=== PATIENT | female | born 1985 | race Two or more races ===

== ENCOUNTER 2019-01-05 13:30 | Inpatient (IN) | payer OTHER ==
[2019-01-05 16:30] VITALS: BMI 23.8
--- NOTE | 2019-01-05 17:20 | HP ---
CIWA Score - Admission Criteria [facility] Guidelines: Admission for Medically Managed Detox: Requires at least one of the followin. CIWA greater than 12 2. Seizures within the past 24 hours 3. Delirium tremens within the past 24 hours 4. Hallucinations within the past 24 hours 5. Acute intervention needed for co occurring medical disorder 6. Acute intervention needed for co occurring psychiatric disorder 7. Severe withdrawal that cannot be handled at a lower level of care (continued vomiting, continued diarrhea, abnormal vital signs) requiring intravenous medication and/or fluids 8. Admission ROS S - HPI Chief Complaint: marijuana and PCP rehabilitation Allergies/Adverse Reactions: Allergies Allergy/AdvReac Type Severity Reaction Status Date / Time No Known Allergies Allergy Verified 01/05/19 15:42 History of Present Illness: Patient is a 33 yo female with hx of marijuana and PCP dependence with last use yesterday, is here seeking inpatient rehabilitation, as per patient she currently is court mandated d/t open ACS case at risk of loosing custody of her children. PMHX: Anemia, abdominal hernia Psych: anxiety. Denies SI/HI or hx of suicide attempt. Exam Limitations: No Limitations - Ebola screening Have you traveled outside of the country in the last 21 days: No Have you had contact with anyone from an Ebola affected area: No Do you have a fever: No - Review of Systems Constitutional: Chills EENT: reports: No Symptoms Reported Respiratory: reports: No Symptoms reported Cardiac: reports: No Symptoms Reported GI: reports: Poor Fluid Intake : reports: No Symptoms Reported Musculoskeletal: reports: No Symptoms Reported Integumentary: reports: No Symptoms Reported Neuro: reports: No Symptoms reported Endocrine: reports: No Symptoms Reported Hematology: reports: No Symptoms Reported Psychiatric: reports: Mood/Affect Appropiate, Orientated x3, Anxious Other Systems: Reviewed and Negative Patient History - Patient Medical History Hx Anemia: Yes Hx Asthma: No Hx Chronic Obstructive Pulmonary Disease (COPD): No Hx Cancer: No Hx Cardiac Disorders: No Hx Congestive Heart Failure: No Hx Hypertension: No Hx Hypercholesterolemia: No Hx Pacemaker: No HX Cerebrovascular Accident: No Hx Seizures: No Hx Dementia: No Hx Diabetes: No Hx Gastrointestinal Disorders: No Hx Liver Disease: No Hx Genitourinary Disorders: No Hx Sexually Transmitted Disorders: No Hx Renal Disease (ESRD): No Hx Thyroid Disease: No Hx Human Immunodeficiency Virus (HIV): No Hx Hepatitis C: No Hx Depression: No Hx Suicide Attempt: No Hx Bipolar Disorder: No Hx Schizophrenia: No - Patient Surgical History Past Surgical History: Yes Hx Section: Yes (x 2 ) Other Surgical History: D &C x 1 - PPD History Previous Implant?: No Documented Results: Negative w/o proof PPD to be Administered?: Yes - Reproductive History Patient is a Female of Child Bearing Age (11 -55 yrs old): Yes Last Menstrual Period: 12/28/18 - Smoking Cessation Smoking history: Smoker current status UNK Have you smoked in the past 12 months: No Hx Chewing Tobacco Use: No Initiated information on smoking cessation: No - Substance & Tx. History Hx Alcohol Use: No Hx Substance Use: Yes (PCP) Substance Use Type: Marijuana Hx Substance Use Treatment: No - Substances abused Marijuana/Hashish Substance route: Smoking Frequency: Daily Amount used: $200 Age of first use: 21 Date of last use: 04/26/18 PCP Substance route: Smoking Frequency: Daily Amount used: 1-2 Blunt ( $20) Age of first use: 21 Date of last use: 01/04/19 Family Disease History - Family Disease History Family History: Denies Admission Physical Exam [facility] - Vital Signs Vital Signs: Vital Signs - 24 hr 01/05/19 15:45 Temperature 98.3 F Pulse Rate 81 Respiratory 16 Rate Blood Pressure 100/65 - Physical General Appearance: Yes: Appropriately Dressed HEENTM: Yes: EOMI, Hearing grossly Normal, Normal ENT Inspection, Normocephalic , Normal Voice, MIKE, Pharynx Normal, Tm's normal Respiratory: Yes: Chest Non-Tender, Lungs Clear, Normal Breath Sounds, No Respiratory Distress, No Accessory Muscle Use Neck: Yes: No masses,lesions,Nodules, Trachea in good position Breast: Yes: Breast Exam Deferred Cardiology: Yes: Regular Rhythm, Regular Rate Abdominal: Yes: Normal Bowel Sounds, Non Tender, Flat, Soft Genitourinary: Yes: Within Normal Limits Back: Yes: Normal Inspection Musculoskeletal: Yes: full range of Motion, Gait Steady, Pelvis Stable Extremities: Yes: Normal Capillary Refill, Normal Inspection, Normal Range of Motion, Non-Tender Neurological: Yes: accounting clerks supervisor II-XII NML intact, Fully Oriented, Alert, Motor Strength 5/5, Normal Mood/Affect, Normal Response, Depressed Affect Integumentary: Yes: Normal Color, Dry, Warm Lymphatic: Yes: Within Normal Limits - Diagnostic (1) PCP dependence Current Visit: Yes Status: Acute (2) Anxiety Current Visit: Yes Status: Acute (3) Anemia Current Visit: Yes Status: Chronic Qualifiers: Anemia type: unspecified type Qualified Code(s): D64.9 - Anemia, unspecified Breathalyzer - Breathalyzer Breathalyzer: 0 Urine Drug Screen - Test Device Lot number: [id number] Expiration date: 10/04/20 - Control Is test valid?: Yes - Results Drug screen NEGATIVE: Yes Inpatient Rehab Admission - Rehab Decision to Admit Inpatient rehab admission?: Yes - Initial Determination Are CD services needed?: Yes Free of communicable disease: Yes Not in need of hospitalization: Yes - Rehab Admission Criteria Previous failed treatment: Yes Poor recovery environment: Yes Comorbidities: Yes Lacks judgement: Yes Patient is meeting Inpatient Rehab admission criteria:: Yes
[2019-01-05] MEDS ORDERED: MENTHOL/PHENOL 1 EACH UD MM PRN (17:22)
[2019-01-05] MEDS ORDERED: P-EPHED 60MG/TRIPROLIDI 2.5MG TABLET PO PRN (17:22)
[2019-01-05] MEDS ORDERED: MAGNESIUM CITRATE 300 ML BOTTLE PO PRN (17:22)
[2019-01-05] MEDS ORDERED: guaiFENesin 200 MG/10 ML 10 ML UNIT-DOSE CUPS PO PRN (17:22)
[2019-01-05] MEDS ORDERED: MAGNESIUM HYDROX 2400MG/30ML ORAL SUSPENSION 30 ML CUP PO PRN (17:22)
[2019-01-05] MEDS ORDERED: MAG HYDROX/AL HYDROX/SIMETH 30 ML UNIT-DOSE CUP PO PRN (17:22)
[2019-01-05] MEDS ORDERED: hydrOXYzine PAMOATE 25 MG CAPSULE (FP) PO PRN (17:22)
[2019-01-05] MEDS ORDERED: LOPERAMIDE HCL 2 MG CAPSULE PO PRN (17:22)
--- NOTE | 2019-01-05 17:47 | PN ---
S Progress Note Note: currently utox specimen cup does not test for PCP, u/a ordered w/ PCP test, results pending
[2019-01-05] MEDS ORDERED: traZODone HCL 50 MG TABLET (FP) PO ONE (22:00)
[2019-01-05] MEDS: THIAMINE HCL 100 MG TABLET (FP) PO SCH (22:16)
[2019-01-06] MEDS: PRENATAL VITAMINS W/ FOLIC ACID TABLET (FP) PO SCH (10:52)
[2019-01-06 11:50] LABS: HEMATOCRIT 34.7 % (32.4-45.2); HEMOGLOBIN 11.3 GM/dL (10.7-15.3); MCHC 32.6 g/dl (32.0-36.0); MEAN CELL VOLUME 88.9 fl (80-96); MEAN PLT VOLUME 8.7 fl (7.5-11.1); RBC 3.91 M/mm3 (3.60-5.2); RDW 13.6 % (11.6-15.6)
[2019-01-06 12:00] LABS: ALBUMIN 3.5 g/dl (3.4-5.0); BILIRUBIN,TOTAL 0.3 mg/dL (0.2-1); BLOOD UREA NITROGEN 11.6 mg/dL (7-18); CALCIUM 8.5 mg/dL (8.5-10.1); CREATININE 0.8 mg/dL (0.55-1.3); POTASSIUM 4.4 mmol/L (3.5-5.1); TOT PROT 6.4 g/dl (6.4-8.2)
[2019-01-06 12:15] LABS: PLATELET COUNT 314 K/MM3 (134-434)
--- NOTE | 2019-01-06 13:57 | EKG ---
Test Reason : Blood Pressure : / mmHG Vent. Rate : 067 BPM Atrial Rate : 067 BPM P-R Int : 140 ms QRS Dur : 078 ms QT Int : 420 ms P-R-T Axes : 071 058 051 degrees QTc Int : 443 ms NORMAL SINUS RHYTHM NORMAL ECG NO PREVIOUS ECGS AVAILABLE Confirmed by LASHAUN FLYNN MD ([id number]) on 01/06/2019 1:57:16 PM Referred By: JEFF GARZA Confirmed By:LASHAUN FLYNN MD
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
[2019-01-06] MEDS: THIAMINE HCL 100 MG TABLET (FP) PO SCH (21:01)
[2019-01-06 23:07] LABS: URINE APPEARANCE CLEAR; URINE BILIRUBIN NEGATIVE (NEGATIVE); URINE COLOR YELLOW; URINE GLUCOSE (UA) NEGATIVE (NEGATIVE); URINE KETONE NEGATIVE (NEGATIVE); URINE LEUK ESTERASE NEGATIVE (NEGATIVE); URINE NITRITE NEGATIVE (NEGATIVE); URINE PROTEIN NEGATIVE (NEGATIVE); URINE UROBILINOGEN 0.2 mg/dL (0.2-1.0)
[2019-01-07] MEDS: PRENATAL VITAMINS W/ FOLIC ACID TABLET (FP) PO SCH (10:10)
--- NOTE | 2019-01-07 15:46 | PN ---
[facility] Progress Note Note: patient complaint of pain on left side,no sob, Vital Signs Temperature 97.7 F 01/07/19 15:43 Pulse Rate 76 01/07/19 15:43 Respiratory Rate 20 01/07/19 15:43 Blood Pressure 100/64 01/07/19 15:43 O2 Sat by Pulse Oximetry (%) ekg nsr,normal treatment motrin 400mgs po close monitoring
[2019-01-07] MEDS: IBUPROFEN 400 MG TABLET (FP) PO PRN (16:09)
[2019-01-07] MEDS: THIAMINE HCL 100 MG TABLET (FP) PO SCH (22:00)
--- NOTE | 2019-01-08 09:17 | EKG ---
Test Reason : Blood Pressure : / mmHG Vent. Rate : 069 BPM Atrial Rate : 069 BPM P-R Int : 146 ms QRS Dur : 080 ms QT Int : 394 ms P-R-T Axes : 062 050 047 degrees QTc Int : 422 ms NORMAL SINUS RHYTHM POSSIBLE LEFT ATRIAL ENLARGEMENT BORDERLINE ECG WHEN COMPARED WITH ECG OF 05-JAN-2019 17:58, NO SIGNIFICANT CHANGE WAS FOUND Confirmed by ADONIS CANAS MD ([id number]) on 01/08/2019 9:17:19 AM Referred By: Confirmed By:ADONIS CANAS MD
[2019-01-08] MEDS: PRENATAL VITAMINS W/ FOLIC ACID TABLET (FP) PO SCH (10:40)
[2019-01-08] MEDS: IBUPROFEN 400 MG TABLET (FP) PO PRN (12:18)
[2019-01-08] MEDS: METHOCARBAMOL 500 MG TABLET PO PRN ×2 (15:15→21:53)
[2019-01-08] MEDS: THIAMINE HCL 100 MG TABLET (FP) PO SCH (21:52)
[2019-01-08] MEDS ORDERED: ASPIRIN 81 MG CHEWABLE TABLETS PO ONE (22:51)
--- NOTE | 2019-01-08 22:54 | PN ---
[facility] Progress Note Note: PATIENT COMPLAINED OF CHEST PAIN Vital Signs Temperature 97.9 F 01/08/19 07:20 Pulse Rate 78 01/08/19 12:15 Respiratory Rate 18 01/08/19 12:15 Blood Pressure 99/64 01/08/19 12:15 O2 Sat by Pulse Oximetry (%) Laboratory Last Values WBC 6.0 K/mm3 (4.0-10.0) 01/06/19 08:35 RBC 3.91 M/mm3 (3.60-5.2) 01/06/19 08:35 Hgb 11.3 GM/dL (10.7-15.3) 01/06/19 08:35 Hct 34.7 % (32.4-45.2) 01/06/19 08:35 MCV 88.9 fl (80-96) 01/06/19 08:35 MCH 29.0 pg (25.7-33.7) 01/06/19 08:35 MCHC 32.6 g/dl (32.0-36.0) 01/06/19 08:35 RDW 13.6 % (11.6-15.6) 01/06/19 08:35 Plt Count 314 K/MM3 (134-434) 01/06/19 08:35 MPV 8.7 fl (7.5-11.1) 01/06/19 08:35 Sodium 142 mmol/L (136-145) 01/06/19 08:35 Potassium 4.4 mmol/L (3.5-5.1) 01/06/19 08:35 Chloride 109 mmol/L (98-107) H 01/06/19 08:35 Carbon Dioxide 27 mmol/L (21-32) 01/06/19 08:35 Anion Gap 6 MMOL/L (8-16) L 01/06/19 08:35 BUN 11.6 mg/dL (7-18) 01/06/19 08:35 Creatinine 0.8 mg/dL (0.55-1.3) 01/06/19 08:35 Est GFR (CKD-EPI)AfAm 112.27 01/06/19 08:35 Est GFR (CKD-EPI)NonAf 96.87 01/06/19 08:35 Random Glucose 117 mg/dL (74-106) H 01/06/19 08:35 Calcium 8.5 mg/dL (8.5-10.1) 01/06/19 08:35 Total Bilirubin 0.3 mg/dL (0.2-1) 01/06/19 08:35 AST 10 U/L (15-37) L 01/06/19 08:35 ALT 23 U/L (13-61) 01/06/19 08:35 Alkaline Phosphatase 47 U/L (45-117) 01/06/19 08:35 Total Protein 6.4 g/dl (6.4-8.2) 01/06/19 08:35 Albumin 3.5 g/dl (3.4-5.0) 01/06/19 08:35 Urine Color Yellow 01/06/19 20:00 Urine Appearance Clear 01/06/19 20:00 Urine pH 7.0 (5.0-8.0) 01/06/19 20:00 Ur Specific [place] 1.024 (1.010-1.035) 01/06/19 20:00 Urine Protein Negative (NEGATIVE) 01/06/19 20:00 Urine Glucose (UA) Negative (NEGATIVE) 01/06/19 20:00 Urine Ketones Negative (NEGATIVE) 01/06/19 20:00 Urine Blood Negative (NEGATIVE) 01/06/19 20:00 Urine Nitrite Negative (NEGATIVE) 01/06/19 20:00 Urine Bilirubin Negative (NEGATIVE) 01/06/19 20:00 Urine Urobilinogen 0.2 mg/dL (0.2-1.0) 01/06/19 20:00 Ur Leukocyte Esterase Negative (NEGATIVE) 01/06/19 20:00 POC Urine HCG, Qual Negative 01/06/19 20:00 RPR Titer Nonreactive (NONREACTIVE) 01/06/19 08:35 ACTION: EKG STAT ASPIRIN 81MG TABLET 1 TABLET ORAL
[2019-01-09] MEDS: PRENATAL VITAMINS W/ FOLIC ACID TABLET (FP) PO SCH (09:33)
[2019-01-09] MEDS: METHOCARBAMOL 500 MG TABLET PO PRN (09:34)
--- NOTE | 2019-01-09 11:54 | EKG ---
Test Reason : Blood Pressure : / mmHG Vent. Rate : 073 BPM Atrial Rate : 073 BPM P-R Int : 148 ms QRS Dur : 082 ms QT Int : 396 ms P-R-T Axes : 073 055 054 degrees QTc Int : 436 ms NORMAL SINUS RHYTHM POSSIBLE LEFT ATRIAL ENLARGEMENT BORDERLINE ECG WHEN COMPARED WITH ECG OF 07-JAN-2019 14:54, NO SIGNIFICANT CHANGE WAS FOUND Confirmed by SHAQ ARAUJO MD ([id number]) on 01/09/2019 11:54:43 AM Referred By: Confirmed By:SHAQ ARAUJO MD
[2019-01-09] MEDS: THIAMINE HCL 100 MG TABLET (FP) PO SCH (21:49)
[2019-01-09] MEDS: IBUPROFEN 400 MG TABLET (FP) PO PRN (21:50)
[2019-01-10] MEDS ORDERED: COLLOIDAL OATMEAL 1 BAR EACH TP PRN (08:05)
[2019-01-10] MEDS: PRENATAL VITAMINS W/ FOLIC ACID TABLET (FP) PO SCH (09:28)
[2019-01-10] MEDS: METHOCARBAMOL 500 MG TABLET PO PRN ×2 (14:01→21:52)
[2019-01-10] MEDS: THIAMINE HCL 100 MG TABLET (FP) PO SCH (21:50)
[2019-01-10] MEDS: MELATONIN 5 MG TABLETS PO PRN (21:51)
[2019-01-11] MEDS: PRENATAL VITAMINS W/ FOLIC ACID TABLET (FP) PO SCH (09:56)
[2019-01-11] MEDS: METHOCARBAMOL 500 MG TABLET PO PRN ×2 (09:56→21:49)
--- NOTE | 2019-01-11 11:41 | PN ---
[facility] Progress Note (SOAP) Subjective: Patient c/o chest pain and low BP. Describes the chest pain as pins and needles that starts in her left hand and travels up to her chest. States she also has pins and needles in her left hand. Chest pain does not increase with pain, states that she does not feel short of breath, and the pain does not radiate anywhere else. She has complained of this pain twice in the past, treated once with ASA 81 and once with motrin. EKGs done twice show NSR. She is also concerned that her BP ranges from 93/63- 103/64. Objective: General: no apparent distress HEENT: PERRLA Lungs: clear Heart: s1 s2 audible, regular Neurological: No neurological deficits noted, hands sensitive to sharp/dull touch Extremities: brisk capillary refill bilaterally hands Skin: color consistent throughout trunk and extremities, mucous membrane moist, pink. CBC, BMP 01/06/19 08:35 01/06/19 08:35 Vital Signs (72 hours) 01/08/19 01/09/19 01/09/19 12:15 00:30 03:30 Temperature Pulse Rate 78 Respiratory 18 17 16 Rate Blood Pressure 99/64 01/09/19 01/10/19 01/10/19 07:18 03:30 06:41 Temperature 97.8 F 97.1 F L Pulse Rate 72 73 Respiratory 18 16 16 Rate Blood Pressure 103/66 102/65 01/10/19 01/11/19 01/11/19 14:02 00:30 03:30 Temperature Pulse Rate 81 Respiratory 18 16 16 Rate Blood Pressure 102/68 01/11/19 01/11/19 07:04 09:59 Temperature 97.9 F Pulse Rate 92 H 88 Respiratory 18 Rate Blood Pressure 93/63 103/64 01/11/19 11:38 Assessment: Numbness and tingling, bilateral hands Normal BP Elevated random blood glucose 01/11/19 11:41 01/11/19 11:42 Plan: Educated patient about BP parameters-- her BP is in the normal range. Explained possibility of nerve pain ( as opposed to cardiac pain) Started gabapentin, 100 mg TID. Vitamin B may also help with nerve pain. BGM x 3 to rule out hyperglycemia
[2019-01-11] MEDS: GABAPENTIN 100 MG CAPSULE (FP) PO SCH ×2 (13:57→21:49)
[2019-01-11] MEDS: THIAMINE HCL 100 MG TABLET (FP) PO SCH (21:49)
[2019-01-12] MEDS: GABAPENTIN 100 MG CAPSULE (FP) PO SCH ×3 (06:24→21:26)
[2019-01-12] MEDS: PRENATAL VITAMINS W/ FOLIC ACID TABLET (FP) PO SCH (09:48)
[2019-01-12] MEDS: THIAMINE HCL 100 MG TABLET (FP) PO SCH (21:26)
[2019-01-13] MEDS: GABAPENTIN 100 MG CAPSULE (FP) PO SCH ×3 (06:55→21:26)
[2019-01-13] MEDS: PRENATAL VITAMINS W/ FOLIC ACID TABLET (FP) PO SCH (09:51)
[2019-01-13] MEDS: METHOCARBAMOL 500 MG TABLET PO PRN ×2 (14:10→21:26)
[2019-01-13] MEDS: THIAMINE HCL 100 MG TABLET (FP) PO SCH (21:25)
[2019-01-13] MEDS: MELATONIN 5 MG TABLETS PO PRN (21:26)
[2019-01-13] MEDS: ACETAMINOPHEN 325 MG TABLET (FP) PO PRN (21:28)
[2019-01-14] MEDS: GABAPENTIN 100 MG CAPSULE (FP) PO SCH ×3 (06:27→21:02)
[2019-01-14] MEDS: PRENATAL VITAMINS W/ FOLIC ACID TABLET (FP) PO SCH (09:49)
[2019-01-14] MEDS: METHOCARBAMOL 500 MG TABLET PO PRN ×2 (09:50→21:02)
[2019-01-14] MEDS: ACETAMINOPHEN 325 MG TABLET (FP) PO PRN (21:02)
[2019-01-14] MEDS: MELATONIN 5 MG TABLETS PO PRN (21:02)
[2019-01-14] MEDS: THIAMINE HCL 100 MG TABLET (FP) PO SCH (21:02)
[2019-01-15] MEDS: GABAPENTIN 100 MG CAPSULE (FP) PO SCH ×3 (06:52→21:27)
[2019-01-15] MEDS: PRENATAL VITAMINS W/ FOLIC ACID TABLET (FP) PO SCH (09:27)
[2019-01-15] MEDS: ACETAMINOPHEN 325 MG TABLET (FP) PO PRN (18:42)
[2019-01-15] MEDS: MELATONIN 5 MG TABLETS PO PRN (21:27)
[2019-01-15] MEDS: THIAMINE HCL 100 MG TABLET (FP) PO SCH (21:27)
[2019-01-15] MEDS: METHOCARBAMOL 500 MG TABLET PO PRN (21:27)
[2019-01-16] MEDS: GABAPENTIN 100 MG CAPSULE (FP) PO SCH ×3 (06:35→21:48)
[2019-01-16] MEDS: PRENATAL VITAMINS W/ FOLIC ACID TABLET (FP) PO SCH (09:41)
--- NOTE | 2019-01-16 10:14 | PN ---
[facility] Progress Note Note: Pt requesting pain patch due to back pain. Pt reports hx of pinched nerve to right shoulder that radiates to fingers due to pushing stroller for months. Pt c /o facial "acne" and requesting medication to clear rash. Vital Signs - 24 hr 01/16/19 01/16/19 01/16/19 00:30 03:30 06:40 Temperature 97.8 F Pulse Rate 90 Respiratory 16 18 18 Rate Blood Pressure 98/61 Laboratory Tests 01/06/19 01/06/19 01/06/19 08:35 08:35 08:35 WBC 6.0 RBC 3.91 Hgb 11.3 Hct 34.7 MCV 88.9 MCH 29.0 MCHC 32.6 RDW 13.6 Plt Count 314 MPV 8.7 Sodium 142 Potassium 4.4 Chloride 109 H Carbon Dioxide 27 Anion Gap 6 L BUN 11.6 Creatinine 0.8 Est GFR (CKD-EPI)AfAm 112.27 Est GFR (CKD-EPI)NonAf 96.87 POC Glucometer Random Glucose 117 H Calcium 8.5 Total Bilirubin 0.3 AST 10 L ALT 23 Alkaline Phosphatase 47 Total Protein 6.4 Albumin 3.5 Urine Color Urine Appearance Urine pH Ur Specific [place] Urine Protein Urine Glucose (UA) Urine Ketones Urine Blood Urine Nitrite Urine Bilirubin Urine Urobilinogen Ur Leukocyte Esterase POC Urine HCG, Qual RPR Titer Nonreactive TB (QFT) Incubation TB Test (QFT) Nil TB Test (QFT) Mitogen TB Test (QFT) Antigen TB Test (QFT) TB Positive Criteria 01/06/19 01/06/19 01/06/19 08:35 20:00 20:00 WBC RBC Hgb Hct MCV MCH MCHC RDW Plt Count MPV Sodium Potassium Chloride Carbon Dioxide Anion Gap BUN Creatinine Est GFR (CKD-EPI)AfAm Est GFR (CKD-EPI)NonAf POC Glucometer Random Glucose Calcium Total Bilirubin AST ALT Alkaline Phosphatase Total Protein Albumin Urine Color Yellow Urine Appearance Clear Urine pH 7.0 Ur Specific [place] 1.024 Urine Protein Negative Urine Glucose (UA) Negative Urine Ketones Negative Urine Blood Negative Urine Nitrite Negative Urine Bilirubin Negative Urine Urobilinogen 0.2 Ur Leukocyte Esterase Negative POC Urine HCG, Qual Negative RPR Titer TB (QFT) Incubation TB Test (QFT) Nil 0.02 TB Test (QFT) Mitogen >10.00 TB Test (QFT) Antigen 0.04 TB Test (QFT) Negative TB Positive Criteria 01/12/19 01/13/19 06:24 07:49 WBC RBC Hgb Hct MCV MCH MCHC RDW Plt Count MPV Sodium Potassium Chloride Carbon Dioxide Anion Gap BUN Creatinine Est GFR (CKD-EPI)AfAm Est GFR (CKD-EPI)NonAf POC Glucometer 93 98 Random Glucose Calcium Total Bilirubin AST ALT Alkaline Phosphatase Total Protein Albumin Urine Color Urine Appearance Urine pH Ur Specific [place] Urine Protein Urine Glucose (UA) Urine Ketones Urine Blood Urine Nitrite Urine Bilirubin Urine Urobilinogen Ur Leukocyte Esterase POC Urine HCG, Qual RPR Titer TB (QFT) Incubation TB Test (QFT) Nil TB Test (QFT) Mitogen TB Test (QFT) Antigen TB Test (QFT) TB Positive Criteria skin:Areas of red papular rash to chin and cheek area. no pus noted. A/P: Back pain Right shoulder pain Facial Acne Lidocaine patch 5% apply daily as directed. Analgesic balm apply to affected area as directed. Benzoyl peroxide solution as directed.
[2019-01-16] MEDS: LIDOCAINE 5% TOPICAL PATCH TP SCH (10:57)
[2019-01-16] MEDS ORDERED: IBUPROFEN 400 MG TABLET (FP) PO PRN (14:37)
[2019-01-16] MEDS: THIAMINE HCL 100 MG TABLET (FP) PO SCH (21:48)
[2019-01-16] MEDS: METHOCARBAMOL 500 MG TABLET PO PRN (21:48)
[2019-01-16] MEDS: LIDOCAINE PATCH REMOVAL MC SCH (21:49)
[2019-01-16] MEDS: METHYL SALICYLATE/MENTHOL OINT 30 GM TUBE TP SCH (21:49)
[2019-01-17] MEDS: GABAPENTIN 100 MG CAPSULE (FP) PO SCH ×3 (06:47→21:47)
[2019-01-17] MEDS ORDERED: PT OWN MED DRAWER 7, Y5N ONE (08:30)
[2019-01-17] MEDS: PRENATAL VITAMINS W/ FOLIC ACID TABLET (FP) PO SCH (09:37)
[2019-01-17] MEDS: BENZOYL PEROXIDE 5% 60 GM GEL..GRAM. TP SCH (09:37)
[2019-01-17] MEDS: LIDOCAINE 5% TOPICAL PATCH TP SCH (09:37)
[2019-01-17] MEDS: LIDOCAINE PATCH REMOVAL MC SCH (21:47)
[2019-01-17] MEDS: METHOCARBAMOL 500 MG TABLET PO PRN (21:47)
[2019-01-17] MEDS: THIAMINE HCL 100 MG TABLET (FP) PO SCH (21:47)
[2019-01-17] MEDS: METHYL SALICYLATE/MENTHOL OINT 30 GM TUBE TP SCH (21:48)
[2019-01-18] MEDS: GABAPENTIN 100 MG CAPSULE (FP) PO SCH ×3 (06:53→21:42)
[2019-01-18] MEDS: PRENATAL VITAMINS W/ FOLIC ACID TABLET (FP) PO SCH (09:48)
[2019-01-18] MEDS: LIDOCAINE 5% TOPICAL PATCH TP SCH (09:48)
[2019-01-18] MEDS: BENZOYL PEROXIDE 5% 60 GM GEL..GRAM. TP SCH (09:48)
[2019-01-18] MEDS ORDERED: PT OWN MED DRAWER 7, Y5N ONE (10:22)
--- NOTE | 2019-01-18 15:37 | PN ---
[facility] Progress Note Note: Pt to be discharged tomorrow. CAme here for marijuana use disorder-rehab, says all went well. PCp-Dr. Arzate, [facility], pt was seen last month PE: alert and oriented lungs clear Cardiology: Yes: Regular Rhythm, Regular Rate Abdominal: Yes: Normal Bowel Sounds, Non Tender, Flat, Soft a/p: MJ use disorder- complted rehab андрей ordered and sent to pharmacy
[2019-01-18] MEDS: LIDOCAINE PATCH REMOVAL MC SCH (21:42)
[2019-01-18] MEDS: THIAMINE HCL 100 MG TABLET (FP) PO SCH (21:42)
[2019-01-18] MEDS: METHOCARBAMOL 500 MG TABLET PO PRN (21:42)
[2019-01-18] MEDS: METHYL SALICYLATE/MENTHOL OINT 30 GM TUBE TP SCH (21:43)
[2019-01-19] MEDS: GABAPENTIN 100 MG CAPSULE (FP) PO SCH (06:29)
[2019-01-19 07:18] VITALS: BP 103/69; PULSE 91; TEMP 97.7
[2019-01-19] MEDS: ACETAMINOPHEN 325 MG TABLET (FP) PO PRN (07:23)
[2019-01-19] MEDS ORDERED: PT OWN MED DRAWER 7, Y5N ONE (08:43)
--- NOTE | 2019-01-19 08:53 | PN ---
[facility] Progress Note (SOAP) Subjective: Pt admitted to rehab for lori and completed treatment, discharging today. Pt was referred to [facility] on [address] [place], [place] for CD aftercare. Pt indicated she has primary care with Dr. Arzate at a [facility] for medical management. Pt denies s/h/i. Objective: 01/19/19 08:52 Vital Signs - 24 hr 01/19/19 01/19/19 01/19/19 00:30 03:30 07:17 Temperature 97.7 F Pulse Rate 91 H Respiratory 18 18 18 Rate Blood Pressure 103/69 Laboratory Tests 01/06/19 01/06/19 01/06/19 08:35 08:35 08:35 WBC 6.0 RBC 3.91 Hgb 11.3 Hct 34.7 MCV 88.9 MCH 29.0 MCHC 32.6 RDW 13.6 Plt Count 314 MPV 8.7 Sodium 142 Potassium 4.4 Chloride 109 H Carbon Dioxide 27 Anion Gap 6 L BUN 11.6 Creatinine 0.8 Est GFR (CKD-EPI)AfAm 112.27 Est GFR (CKD-EPI)NonAf 96.87 POC Glucometer Random Glucose 117 H Calcium 8.5 Total Bilirubin 0.3 AST 10 L ALT 23 Alkaline Phosphatase 47 Total Protein 6.4 Albumin 3.5 Urine Color Urine Appearance Urine pH Ur Specific [place] Urine Protein Urine Glucose (UA) Urine Ketones Urine Blood Urine Nitrite Urine Bilirubin Urine Urobilinogen Ur Leukocyte Esterase POC Urine HCG, Qual RPR Titer Nonreactive TB (QFT) Incubation TB Test (QFT) Nil TB Test (QFT) Mitogen TB Test (QFT) Antigen TB Test (QFT) TB Positive Criteria 01/06/19 01/06/19 01/06/19 08:35 20:00 20:00 WBC RBC Hgb Hct MCV MCH MCHC RDW Plt Count MPV Sodium Potassium Chloride Carbon Dioxide Anion Gap BUN Creatinine Est GFR (CKD-EPI)AfAm Est GFR (CKD-EPI)NonAf POC Glucometer Random Glucose Calcium Total Bilirubin AST ALT Alkaline Phosphatase Total Protein Albumin Urine Color Yellow Urine Appearance Clear Urine pH 7.0 Ur Specific [place] 1.024 Urine Protein Negative Urine Glucose (UA) Negative Urine Ketones Negative Urine Blood Negative Urine Nitrite Negative Urine Bilirubin Negative Urine Urobilinogen 0.2 Ur Leukocyte Esterase Negative POC Urine HCG, Qual Negative RPR Titer TB (QFT) Incubation TB Test (QFT) Nil 0.02 TB Test (QFT) Mitogen >10.00 TB Test (QFT) Antigen 0.04 TB Test (QFT) Negative TB Positive Criteria 01/12/19 01/13/19 06:24 07:49 WBC RBC Hgb Hct MCV MCH MCHC RDW Plt Count MPV Sodium Potassium Chloride Carbon Dioxide Anion Gap BUN Creatinine Est GFR (CKD-EPI)AfAm Est GFR (CKD-EPI)NonAf POC Glucometer 93 98 Random Glucose Calcium Total Bilirubin AST ALT Alkaline Phosphatase Total Protein Albumin Urine Color Urine Appearance Urine pH Ur Specific [place] Urine Protein Urine Glucose (UA) Urine Ketones Urine Blood Urine Nitrite Urine Bilirubin Urine Urobilinogen Ur Leukocyte Esterase POC Urine HCG, Qual RPR Titer TB (QFT) Incubation TB Test (QFT) Nil TB Test (QFT) Mitogen TB Test (QFT) Antigen TB Test (QFT) TB Positive Criteria General:Alert o x 3. Ambulates with steady gait. No acute distress Cardiac:s1 s2, rrr Lungs:cta,hillary. Extremities/skin:No edema/no cyanosis Assessment: 01/19/19 13:44 Medically Stable [facility] Inpatient Services Medical - Diagnosis (1) Anemia Qualifiers: Anemia type: unspecified type Qualified Code(s): D64.9 - Anemia, unspecified Status: Chronic (2) PCP dependence Status: Chronic Initialized on 01/19/19 08:53 - END OF NOTE Plan: D/c pt today Follow up with CD aftercare recommendation at [facility] Follow up with primary care for medical management within 1-2 weeks after discharge.
[2019-01-19] MEDS: PRENATAL VITAMINS W/ FOLIC ACID TABLET (FP) PO SCH (09:09)
[2019-01-19] MEDS: BENZOYL PEROXIDE 5% 60 GM GEL..GRAM. TP SCH (09:10)
[2019-01-19] MEDS: LIDOCAINE 5% TOPICAL PATCH TP SCH (09:10)
== END 2019-01-19 09:11 | disposition home or self-care (01) | DRG 772 ==
LOC: YASAS 13:30 → Y3E 17:36
PROVIDERS: ADMIT Neuromusculoskeletal Medicine & OMM; ATTEND Neuromusculoskeletal Medicine & OMM
PROC: HZ42ZZZ Group Counseling for Substance Abuse Treatment, Cognitive-Behavioral (ICD-10-PCS; principal; 2019-01-05)
DX: F16.20 Hallucinogen dependence, uncomplicated (principal); F19.24 Other psychoactive substance dependence with psychoactive substance-induced mood disorder; G47.00 Insomnia, unspecified; D64.9 Anemia, unspecified; M54.9 Dorsalgia, unspecified; M25.511 Pain in right shoulder; L70.9 Acne, unspecified; R20.0 Anesthesia of skin; R20.2 Paresthesia of skin; R73.09 Other abnormal glucose; R07.89 Other chest pain
CPT/HCPCS: 36415; 80053; 81003; 81025; 82962; 85027; 86480; 86593; 93005; 93010

== ENCOUNTER 2020-06-18 08:10 | Inpatient (IN) | payer OTHER ==
[2020-06-18 08:45] VITALS: BMI 28.7
[2020-06-18] MEDS ORDERED: P-EPHED 60MG/TRIPROLIDI 2.5MG TABLET PO PRN (14:16)
[2020-06-18] MEDS ORDERED: MAGNESIUM CITRATE 300 ML BOTTLE PO PRN (14:16)
[2020-06-18] MEDS ORDERED: guaiFENesin 200 MG/10 ML 10 ML UNIT-DOSE CUPS PO PRN (14:16)
[2020-06-18] MEDS ORDERED: MAG HYDROX/AL HYDROX/SIMETH 30 ML UNIT-DOSE CUP PO PRN (14:16)
[2020-06-18] MEDS ORDERED: MAGNESIUM HYDROX 2400MG/30ML ORAL SUSPENSION 30 ML CUP PO PRN (14:16)
[2020-06-18] MEDS ORDERED: ACETAMINOPHEN 325 MG TABLET (FP) PO PRN (14:16)
[2020-06-18] MEDS ORDERED: IBUPROFEN 400 MG TABLET (FP) PO PRN (14:16)
[2020-06-18] MEDS ORDERED: LOPERAMIDE HCL 2 MG CAPSULE PO PRN (14:16)
[2020-06-18 17:15] LABS: POTASSIUM 4.3 mmol/L (3.5-5.1)
[2020-06-18 17:17] LABS: ALBUMIN 4.3 g/dl (3.4-5.0); BLOOD UREA NITROGEN 11.1 mg/dL (7-18); CALCIUM 9.2 mg/dL (8.5-10.1)
[2020-06-18 17:19] LABS: HEMATOCRIT 41.4 % (32.4-45.2); HEMOGLOBIN 13.5 GM/dL (10.7-15.3); MCHC 32.5 g/dl (32.0-36.0); MEAN CELL VOLUME 89.2 fl (80-96); MEAN PLT VOLUME 8.5 fl (7.5-11.1); PLATELET COUNT 368 K/MM3 (134-434); RBC 4.65 M/mm3 (3.60-5.2); RDW 13.9 % (11.6-15.6); WHITE BLOOD COUNT 7.7 K/mm3 (4.0-10.0)
[2020-06-18 17:21] LABS: CREATININE 0.8 mg/dL (0.55-1.3)
[2020-06-18 17:22] LABS: BILIRUBIN,TOTAL 0.4 mg/dL (0.2-1); TOT PROT 7.8 g/dl (6.4-8.2)
[2020-06-18 17:40] LABS: SICKLE CELL SCREEN NEGATIVE (NEGATIVE)
[2020-06-18 18:13] LABS: HIV INTERPRETATION NEGATIVE (NEGATIVE)
[2020-06-18] MEDS: hydrOXYzine PAMOATE 25 MG CAPSULE (FP) PO SCH ×2 (19:09→21:23)
[2020-06-18] MEDS: MELATONIN 5 MG TABLETS PO SCH (21:23)
[2020-06-18] MEDS: THIAMINE HCL 100 MG TABLET (FP) PO SCH (21:23)
[2020-06-18 23:36] LABS: PH,URINE 5.5 (5.0-8.0); URINE APPEARANCE Clear; URINE BILIRUBIN Negative (NEGATIVE); URINE COLOR Yellow; URINE GLUCOSE (UA) Negative (NEGATIVE); URINE KETONE Negative (NEGATIVE); URINE LEUK ESTERASE Negative (NEGATIVE); URINE NITRITE Negative (NEGATIVE); URINE PROTEIN Negative (NEGATIVE); URINE UROBILINOGEN 0.2 mg/dL (0.2-1.0)
[2020-06-19 02:49] LABS: EPI CELLS 74 /uL (0-25.1); HYALINE CASTS 4 /uL (0-3.1); URINE RBC 7 /uL (0-23.9); URINE WBC 43 /uL (0-25.8)
[2020-06-19 02:50] LABS: URINE BACTERIA 1090 /uL (0-1359)
[2020-06-19] MEDS: hydrOXYzine PAMOATE 25 MG CAPSULE (FP) PO SCH ×5 (06:29→21:23)
[2020-06-19] MEDS: PRENATAL VITAMINS W/ FOLIC ACID TABLET (FP) PO SCH (10:35)
[2020-06-19 20:31] LABS: URINE APPEARANCE Clear; URINE BILIRUBIN Negative (NEGATIVE); URINE COLOR Yellow; URINE GLUCOSE (UA) Negative (NEGATIVE); URINE KETONE Trace (NEGATIVE); URINE LEUK ESTERASE Negative (NEGATIVE); URINE NITRITE Negative (NEGATIVE); URINE PROTEIN Negative (NEGATIVE); URINE UROBILINOGEN 0.2 mg/dL (0.2-1.0)
[2020-06-19] MEDS: MELATONIN 5 MG TABLETS PO SCH (21:23)
[2020-06-19] MEDS: THIAMINE HCL 100 MG TABLET (FP) PO SCH (21:23)
[2020-06-20] MEDS: hydrOXYzine PAMOATE 25 MG CAPSULE (FP) PO SCH ×3 (06:34→14:47)
[2020-06-20] MEDS: PRENATAL VITAMINS W/ FOLIC ACID TABLET (FP) PO SCH (10:51)
[2020-06-20] MEDS: hydrOXYzine PAMOATE 50 MG CAPSULE (FP) PO PRN ×2 (14:19→21:13)
[2020-06-20] MEDS: THIAMINE HCL 100 MG TABLET (FP) PO SCH (21:12)
[2020-06-20] MEDS: MELATONIN 5 MG TABLETS PO SCH (21:12)
[2020-06-21 07:16] VITALS: BP 115/68; PULSE 73; TEMP 97.5
[2020-06-21] MEDS: PRENATAL VITAMINS W/ FOLIC ACID TABLET (FP) PO SCH (10:45)
[2020-06-21] MEDS: hydrOXYzine PAMOATE 50 MG CAPSULE (FP) PO PRN (12:08)
[2020-06-21] MEDS ORDERED: AMOX TR/POT CLAV 500MG/125MG TABLETS (FP) PO SCH (17:30)
== END 2020-06-21 15:01 | disposition left against medical advice (07) | DRG 770 ==
LOC: YASAS 08:10 → Y3W 13:20
PROVIDERS: ADMIT Allergy & Immunology; ATTEND Allergy & Immunology
PROC: HZ42ZZZ Group Counseling for Substance Abuse Treatment, Cognitive-Behavioral (ICD-10-PCS; principal; 2020-06-18)
DX: F16.20 Hallucinogen dependence, uncomplicated (principal); N39.0 Urinary tract infection, site not specified; B96.89 Other specified bacterial agents as the cause of diseases classified elsewhere; Z59.0 Homelessness
CPT/HCPCS: 36415; 80053; 81003; 81025; 85027; 85660; 86780; 87077; 87086; 87389; C9803; U0003

== ENCOUNTER 2022-03-21 15:02 | Inpatient (IN) | payer OTHER ==
[2022-03-21 17:10] VITALS: BMI 27.3
[2022-03-21] MEDS ORDERED: LOPERAMIDE HCL 2 MG CAPSULE PO PRN (20:41)
[2022-03-21] MEDS ORDERED: IBUPROFEN 400 MG TABLET (FP) PO PRN (20:41)
[2022-03-21] MEDS ORDERED: ACETAMINOPHEN 325 MG TABLET (FP) PO PRN (20:41)
[2022-03-21] MEDS ORDERED: MAG HYDROX/AL HYDROX/SIMETH 30 ML UNIT-DOSE CUP PO PRN (20:41)
[2022-03-21] MEDS ORDERED: guaiFENesin 200 MG/10 ML 10 ML UNIT-DOSE CUPS PO PRN (20:41)
[2022-03-21] MEDS ORDERED: MAGNESIUM HYDROX 2400MG/30ML ORAL SUSPENSION 30 ML CUP PO PRN (20:41)
[2022-03-21] MEDS ORDERED: P-EPHED 60MG/TRIPROLIDI 2.5MG TABLET PO PRN (20:41)
[2022-03-21] MEDS ORDERED: MAGNESIUM CITRATE 300 ML BOTTLE PO PRN (20:41)
[2022-03-21] MEDS ORDERED: hydrOXYzine PAMOATE 25 MG CAPSULE (FP) PO PRN (20:41)
[2022-03-22] MEDS: MELATONIN 5 MG TABLETS PO SCH ×2 (00:09→21:09)
[2022-03-22] MEDS: THIAMINE HCL 100 MG TABLET (FP) PO SCH ×2 (00:09→21:10)
[2022-03-22] MEDS: PRENATAL VITAMINS W/ FOLIC ACID TABLET (FP) PO SCH (10:51)
[2022-03-22 12:15] LABS: HEMOGLOBIN 12.3 GM/dL (10.7-15.3); MCH 28.8 pg (25.7-33.7); MCHC 32.3 g/dl (32.0-36.0); MEAN CELL VOLUME 89.1 fl (80-96); MEAN PLT VOLUME 8.9 fl (7.5-11.1); PLATELET COUNT 340 10^3/uL (134-434); RBC 4.26 M/mm3 (3.60-5.2); RDW 13.5 % (11.6-15.6); WHITE BLOOD COUNT 7.3 K/mm3 (4.0-10.0)
[2022-03-22 12:19] LABS: EPI CELLS >36 /uL (0-25.1); HYALINE CASTS 25 /uL (0-3.1); PH,URINE 5.5 (5.0-8.0); URINE APPEARANCE TURBID; URINE BACTERIA 8280 /uL (0-1359); URINE BILIRUBIN NEGATIVE (NEGATIVE); URINE COLOR YELLOW; URINE GLUCOSE (UA) NEGATIVE (NEGATIVE); URINE KETONE NEGATIVE (NEGATIVE); URINE LEUK ESTERASE NEGATIVE (NEGATIVE); URINE NITRITE NEGATIVE (NEGATIVE); URINE PROTEIN NEGATIVE (NEGATIVE); URINE RBC 10 /uL (0-23.9); URINE UROBILINOGEN 0.2 mg/dL (0.2-1.0)
[2022-03-22 12:40] LABS: ALBUMIN 3.4 g/dl (3.4-5.0); CALCIUM 8.8 mg/dL (8.5-10.1)
[2022-03-22 12:41] LABS: BLOOD UREA NITROGEN 13.3 mg/dL (7-18)
[2022-03-22 12:43] LABS: CREATININE 0.8 mg/dL (0.55-1.3)
[2022-03-22 12:45] LABS: BILIRUBIN,TOTAL 0.4 mg/dL (0.2-1); TOT PROT 6.5 g/dl (6.4-8.2)
[2022-03-22 12:47] LABS: SYPHILIS W/ RPR CONF NON-REACTIVE (NONREACTIVE)
[2022-03-22 14:26] LABS: URINE WBC MODERATE /uL (0-25.8)
[2022-03-22] MEDS: hydrOXYzine PAMOATE 25 MG CAPSULE (FP) PO PRN (21:10)
[2022-03-22] MEDS: SUVOREXANT 10 MG TABLET PO PRN (21:12)
[2022-03-23] MEDS: PRENATAL VITAMINS W/ FOLIC ACID TABLET (FP) PO SCH (10:24)
[2022-03-23] MEDS: MELATONIN 5 MG TABLETS PO SCH (21:21)
[2022-03-23] MEDS: hydrOXYzine PAMOATE 25 MG CAPSULE (FP) PO PRN (21:22)
[2022-03-23] MEDS: SUVOREXANT 10 MG TABLET PO PRN (21:23)
[2022-03-23] MEDS: THIAMINE HCL 100 MG TABLET (FP) PO SCH (21:23)
[2022-03-24] MEDS: PRENATAL VITAMINS W/ FOLIC ACID TABLET (FP) PO SCH (11:00)
[2022-03-24] MEDS: hydrOXYzine PAMOATE 25 MG CAPSULE (FP) PO PRN ×2 (11:00→21:15)
[2022-03-24] MEDS: MELATONIN 5 MG TABLETS PO SCH (21:13)
[2022-03-24] MEDS: THIAMINE HCL 100 MG TABLET (FP) PO SCH (21:13)
[2022-03-24] MEDS: SUVOREXANT 10 MG TABLET PO PRN (21:15)
[2022-03-25] MEDS: PRENATAL VITAMINS W/ FOLIC ACID TABLET (FP) PO SCH (10:37)
[2022-03-25] MEDS: hydrOXYzine PAMOATE 25 MG CAPSULE (FP) PO PRN (10:38)
[2022-03-25] MEDS: MELATONIN 5 MG TABLETS PO SCH (21:18)
[2022-03-25] MEDS: THIAMINE HCL 100 MG TABLET (FP) PO SCH (21:18)
[2022-03-25] MEDS: SUVOREXANT 10 MG TABLET PO PRN (21:19)
[2022-03-25] MEDS: hydrOXYzine PAMOATE 50 MG CAPSULE (FP) PO PRN (21:22)
[2022-03-25] MEDS ORDERED: SUVOREXANT 10 MG TABLET PO PRN (22:00)
[2022-03-26 07:18] VITALS: BP 101/66; PULSE 86; RESP 16; TEMP 98.1
[2022-03-26] MEDS: hydrOXYzine PAMOATE 50 MG CAPSULE (FP) PO PRN (10:39)
[2022-03-26] MEDS: PRENATAL VITAMINS W/ FOLIC ACID TABLET (FP) PO SCH (10:39)
== END 2022-03-26 13:55 | disposition home or self-care (01) | DRG 772 ==
LOC: YASAS 15:02 → Y5N 03-22 06:36
PROVIDERS: ADMIT Surgery; ATTEND Allergy & Immunology
PROC: HZ42ZZZ Group Counseling for Substance Abuse Treatment, Cognitive-Behavioral (ICD-10-PCS; principal; 2022-03-22)
DX: F16.20 Hallucinogen dependence, uncomplicated (principal); F19.280 Other psychoactive substance dependence with psychoactive substance-induced anxiety disorder; F19.282 Other psychoactive substance dependence with psychoactive substance-induced sleep disorder; F19.24 Other psychoactive substance dependence with psychoactive substance-induced mood disorder; F41.9 Anxiety disorder, unspecified; M54.50 Low back pain, unspecified; G89.29 Other chronic pain; Z86.79 Personal history of other diseases of the circulatory system; Z28.310 Unvaccinated for COVID-19; Z28.9 Immunization not carried out for unspecified reason; Z59.01 Sheltered homelessness
CPT/HCPCS: 36415; 80053; 81003; 81025; 85027; 86780; 86803; 93005; 93010; C9803-CS; U0003; U0005

== ENCOUNTER 2022-03-27 18:38 | Inpatient (IN) | payer OTHER ==
[2022-03-27 20:40] VITALS: BMI 28.3
[2022-03-27] MEDS ORDERED: MELATONIN 5 MG TABLETS PO PRN (22:31)
[2022-03-27] MEDS ORDERED: LOPERAMIDE HCL 2 MG CAPSULE PO PRN (22:31)
[2022-03-27] MEDS ORDERED: P-EPHED 60MG/TRIPROLIDI 2.5MG TABLET PO PRN (22:31)
[2022-03-27] MEDS ORDERED: guaiFENesin 200 MG/10 ML 10 ML UNIT-DOSE CUPS PO PRN (22:31)
[2022-03-27] MEDS ORDERED: MAGNESIUM HYDROX 2400MG/30ML ORAL SUSPENSION 30 ML CUP PO PRN (22:31)
[2022-03-27] MEDS ORDERED: BENZOCAINE/MENTHOL (CHLORASEPTIC ) LOZENGE MM PRN (22:31)
[2022-03-27] MEDS ORDERED: MAGNESIUM CITRATE 300 ML BOTTLE PO PRN (22:31)
[2022-03-27] MEDS ORDERED: ACETAMINOPHEN 325 MG TABLET (FP) PO PRN (22:31)
[2022-03-27] MEDS ORDERED: IBUPROFEN 400 MG TABLET (FP) PO PRN (22:31)
[2022-03-27] MEDS ORDERED: MAG HYDROX/AL HYDROX/SIMETH 30 ML UNIT-DOSE CUP PO PRN (22:31)
[2022-03-28] MEDS: hydrOXYzine PAMOATE 25 MG CAPSULE (FP) PO PRN ×3 (01:53→21:44)
[2022-03-28] MEDS: PRENATAL VITAMINS W/ FOLIC ACID TABLET (FP) PO SCH ×2 (11:19→11:39)
[2022-03-28] MEDS: THIAMINE HCL 100 MG TABLET (FP) PO SCH (21:42)
[2022-03-28] MEDS: MIRTAZAPINE 15 MG TABLET (FP) PO SCH (21:44)
[2022-03-29] MEDS: PRENATAL VITAMINS W/ FOLIC ACID TABLET (FP) PO SCH (10:13)
[2022-03-29] MEDS: hydrOXYzine PAMOATE 25 MG CAPSULE (FP) PO PRN ×2 (10:13→21:52)
[2022-03-29] MEDS: THIAMINE HCL 100 MG TABLET (FP) PO SCH (21:52)
[2022-03-29] MEDS: MIRTAZAPINE 15 MG TABLET (FP) PO SCH (21:53)
[2022-03-30 07:18] VITALS: BP 95/57; PULSE 87; RESP 16; TEMP 98
[2022-03-30] MEDS: PRENATAL VITAMINS W/ FOLIC ACID TABLET (FP) PO SCH (10:26)
[2022-03-30] MEDS: hydrOXYzine PAMOATE 25 MG CAPSULE (FP) PO PRN (10:27)
== END 2022-03-30 11:44 | disposition left against medical advice (07) | DRG 770 ==
LOC: YASAS 18:38 → Y5N 03-28 01:26
PROVIDERS: ADMIT Allergy & Immunology; ATTEND Allergy & Immunology
PROC: HZ42ZZZ Group Counseling for Substance Abuse Treatment, Cognitive-Behavioral (ICD-10-PCS; principal; 2022-03-28)
DX: F16.20 Hallucinogen dependence, uncomplicated (principal); F53.0 Postpartum depression; F19.282 Other psychoactive substance dependence with psychoactive substance-induced sleep disorder; F19.24 Other psychoactive substance dependence with psychoactive substance-induced mood disorder; M54.50 Low back pain, unspecified; G89.29 Other chronic pain; Z86.2 Personal history of diseases of the blood and blood-forming organs and certain disorders involving the immune mechanism; Z86.79 Personal history of other diseases of the circulatory system; Z91.410 Personal history of adult physical and sexual abuse; Z59.01 Sheltered homelessness; Z56.0 Unemployment, unspecified; Z28.310 Unvaccinated for COVID-19; Z28.9 Immunization not carried out for unspecified reason
CPT/HCPCS: 81025; C9803-CS; U0003; U0005

== ENCOUNTER 2022-11-11 15:40 | Inpatient (IN) | payer OTHER ==
[2022-11-11 17:54] VITALS: BMI 24.4
[2022-11-11] MEDS ORDERED: POLYETHYLENE GLYCOL (HEALTHYLAX) 3350 17 GM PACKET PO PRN (19:20)
[2022-11-11] MEDS ORDERED: AMMONIUM LACTATE 12% LOTION 225 GM BOTTLE TP PRN (19:20)
[2022-11-11] MEDS ORDERED: NALOXONE HCL 0.4 MG/ML VIAL IM PRN (19:20)
[2022-11-11] MEDS ORDERED: COLLOIDAL OATMEAL 1 BAR EACH TP PRN (19:20)
[2022-11-11] MEDS ORDERED: guaiFENesin 600 MG TABLET.ER (FP) PO PRN (19:20)
[2022-11-11] MEDS ORDERED: IBUPROFEN 600 MG TABLET (FP) PO PRN (19:20)
[2022-11-11] MEDS ORDERED: LOPERAMIDE HCL 2 MG CAPSULE PO PRN (19:20)
[2022-11-11] MEDS ORDERED: ACETAMINOPHEN 325 MG TABLET (FP) PO PRN (19:20)
[2022-11-11] MEDS ORDERED: BENZONATATE 200 MG CAPSULE PO PRN (19:20)
[2022-11-11] MEDS ORDERED: NALOXONE HCL (KLOXXADO) 8 MG SPRAY NS PRN (19:20)
[2022-11-11] MEDS ORDERED: IBUPROFEN 400 MG TABLET (FP) PO PRN (19:20)
[2022-11-11] MEDS ORDERED: BENZOCAINE/MENTHOL (CHLORASEPTIC ) LOZENGE MM PRN (19:20)
[2022-11-11] MEDS ORDERED: MAGNESIUM HYDROX 2400MG/30ML ORAL SUSPENSION 30 ML CUP PO PRN (19:20)
[2022-11-11] MEDS ORDERED: MAG HYDROX/AL HYDROX/SIMETH 30 ML UNIT-DOSE CUP PO PRN (19:20)
[2022-11-11] MEDS: THIAMINE HCL 100 MG TABLET (FP) PO SCH (21:20)
[2022-11-11] MEDS: hydrOXYzine PAMOATE 25 MG CAPSULE (FP) PO PRN (21:20)
[2022-11-11] MEDS: MELATONIN 5 MG TABLETS PO SCH (21:21)
[2022-11-11] MEDS ORDERED: TUBERCULIN PPD 5 TU/0.1ML VIAL ID ONE (21:55)
[2022-11-12] MEDS: PRENATAL VITAMINS W/ FOLIC ACID TABLET (FP) PO SCH (09:51)
[2022-11-12 11:54] LABS: HEMATOCRIT 38.3 % (32.4-45.2); MCHC 31.3 g/dl (32.0-36.0); MEAN CELL VOLUME 89.4 fl (80-96); MEAN PLT VOLUME 8.9 fl (7.5-11.1); PLATELET COUNT 402 10^3/uL (134-434); RBC 4.28 M/mm3 (3.60-5.2); RDW 13.5 % (11.6-15.6); WHITE BLOOD COUNT 8.4 K/mm3 (4.0-10.0)
[2022-11-12 11:55] LABS: PH,URINE 6.5 (5.0-8.0); URINE APPEARANCE CLEAR; URINE BILIRUBIN NEGATIVE (NEGATIVE); URINE COLOR YELLOW; URINE GLUCOSE (UA) NEGATIVE (NEGATIVE); URINE KETONE NEGATIVE (NEGATIVE); URINE LEUK ESTERASE NEGATIVE (NEGATIVE); URINE NITRITE NEGATIVE (NEGATIVE); URINE PROTEIN NEGATIVE (NEGATIVE); URINE UROBILINOGEN 0.2 mg/dL (0.2-1.0)
[2022-11-12 12:07] LABS: POTASSIUM 4.6 mmol/L (3.5-5.1)
[2022-11-12 12:09] LABS: CALCIUM 9.3 mg/dL (8.5-10.1)
[2022-11-12 12:10] LABS: ALBUMIN 3.5 g/dl (3.4-5.0)
[2022-11-12 12:13] LABS: CREATININE 0.7 mg/dL (0.55-1.3)
[2022-11-12 12:15] LABS: BILIRUBIN,TOTAL 0.5 mg/dL (0.2-1); TOT PROT 6.7 g/dl (6.4-8.2)
[2022-11-12] MEDS: MELATONIN 5 MG TABLETS PO SCH (21:21)
[2022-11-12] MEDS: THIAMINE HCL 100 MG TABLET (FP) PO SCH (21:22)
[2022-11-12] MEDS: traZODone HCL 100 MG TABLET (FP) PO SCH (21:24)
[2022-11-12] MEDS: hydrOXYzine PAMOATE 25 MG CAPSULE (FP) PO PRN (21:25)
[2022-11-13] MEDS: PRENATAL VITAMINS W/ FOLIC ACID TABLET (FP) PO SCH (10:36)
[2022-11-13] MEDS: traZODone HCL 100 MG TABLET (FP) PO SCH (21:25)
[2022-11-13] MEDS: MELATONIN 5 MG TABLETS PO SCH (21:25)
[2022-11-13] MEDS: THIAMINE HCL 100 MG TABLET (FP) PO SCH (21:25)
[2022-11-13] MEDS: hydrOXYzine PAMOATE 25 MG CAPSULE (FP) PO PRN (21:25)
[2022-11-14] MEDS: PRENATAL VITAMINS W/ FOLIC ACID TABLET (FP) PO SCH (10:16)
[2022-11-14] MEDS: traZODone HCL 100 MG TABLET (FP) PO SCH (21:49)
[2022-11-14] MEDS: MELATONIN 5 MG TABLETS PO SCH (21:49)
[2022-11-14] MEDS: hydrOXYzine PAMOATE 25 MG CAPSULE (FP) PO PRN (21:49)
[2022-11-14] MEDS: THIAMINE HCL 100 MG TABLET (FP) PO SCH (21:49)
[2022-11-15] MEDS: NICOTINE 10 MG CARTRIDGE (INHALER) IH PRN ×2 (07:21→21:28)
[2022-11-15] MEDS: PRENATAL VITAMINS W/ FOLIC ACID TABLET (FP) PO SCH (10:44)
[2022-11-15] MEDS: hydrOXYzine PAMOATE 25 MG CAPSULE (FP) PO PRN (16:47)
[2022-11-15] MEDS: MELATONIN 5 MG TABLETS PO SCH (21:28)
[2022-11-15] MEDS: THIAMINE HCL 100 MG TABLET (FP) PO SCH (21:28)
[2022-11-15] MEDS: traZODone HCL 100 MG TABLET (FP) PO SCH (21:28)
[2022-11-16 07:55] VITALS: BP 98/60; PULSE 99; RESP 18; TEMP 97.2
[2022-11-16] MEDS: PRENATAL VITAMINS W/ FOLIC ACID TABLET (FP) PO SCH (10:07)
[2022-11-16] MEDS: hydrOXYzine PAMOATE 25 MG CAPSULE (FP) PO PRN (10:08)
== END 2022-11-16 11:40 | disposition left against medical advice (07) | DRG 770 ==
LOC: YASAS 15:40 → Y5N 20:21
PROVIDERS: ADMIT Allergy & Immunology; ATTEND Psychiatry & Neurology Pain Medicine
PROC: HZ42ZZZ Group Counseling for Substance Abuse Treatment, Cognitive-Behavioral (ICD-10-PCS; principal; 2022-11-11)
DX: F10.20 Alcohol dependence, uncomplicated (principal); F16.20 Hallucinogen dependence, uncomplicated; F19.282 Other psychoactive substance dependence with psychoactive substance-induced sleep disorder; F19.280 Other psychoactive substance dependence with psychoactive substance-induced anxiety disorder; F19.24 Other psychoactive substance dependence with psychoactive substance-induced mood disorder; F17.210 Nicotine dependence, cigarettes, uncomplicated; F32.A Depression, unspecified; M54.50 Low back pain, unspecified; G89.29 Other chronic pain; Z86.79 Personal history of other diseases of the circulatory system; Z59.01 Sheltered homelessness; Z28.310 Unvaccinated for COVID-19; Z28.9 Immunization not carried out for unspecified reason
CPT/HCPCS: 36415; 80053; 81003; 81025; 82962; 85027; 86780; 87635

== ENCOUNTER 2023-01-02 19:32 | Inpatient (IN) | payer OTHER ==
[2023-01-02 19:57] VITALS: BMI 25.0
[2023-01-02] MEDS ORDERED: AMMONIUM LACTATE 12% LOTION 225 GM BOTTLE TP PRN (21:54)
[2023-01-02] MEDS ORDERED: NALOXONE HCL (KLOXXADO) 8 MG SPRAY NS PRN (21:54)
[2023-01-02] MEDS ORDERED: MAGNESIUM HYDROX 2400MG/30ML ORAL SUSPENSION 30 ML CUP PO PRN (21:54)
[2023-01-02] MEDS ORDERED: BENZONATATE 200 MG CAPSULE PO PRN (21:54)
[2023-01-02] MEDS ORDERED: guaiFENesin 600 MG TABLET.ER (FP) PO PRN (21:54)
[2023-01-02] MEDS ORDERED: NALOXONE HCL 0.4 MG/ML VIAL IM PRN (21:54)
[2023-01-02] MEDS ORDERED: MAG HYDROX/AL HYDROX/SIMETH 30 ML UNIT-DOSE CUP PO PRN (21:54)
[2023-01-02] MEDS ORDERED: BENZOCAINE/MENTHOL (CHLORASEPTIC ) LOZENGE MM PRN (21:54)
[2023-01-02] MEDS ORDERED: LOPERAMIDE HCL 2 MG CAPSULE PO PRN (21:54)
[2023-01-02] MEDS ORDERED: IBUPROFEN 400 MG TABLET (FP) PO PRN (21:54)
[2023-01-02] MEDS ORDERED: POLYETHYLENE GLYCOL (HEALTHYLAX) 3350 17 GM PACKET PO PRN (21:54)
[2023-01-02] MEDS ORDERED: COLLOIDAL OATMEAL 1 BAR EACH TP PRN (21:54)
[2023-01-02] MEDS ORDERED: IBUPROFEN 600 MG TABLET (FP) PO PRN (21:54)
[2023-01-02] MEDS ORDERED: MELATONIN 5 MG TABLETS PO SCH (22:00)
[2023-01-02] MEDS: THIAMINE HCL 100 MG TABLET (FP) PO SCH (22:53)
[2023-01-02 23:04] VITALS: RESP 18
[2023-01-03] MEDS: PRENATAL VITAMINS W/ FOLIC ACID TABLET (FP) PO SCH (09:39)
[2023-01-03] MEDS: hydrOXYzine PAMOATE 25 MG CAPSULE (FP) PO PRN (19:16)
[2023-01-03] MEDS: THIAMINE HCL 100 MG TABLET (FP) PO SCH (21:20)
[2023-01-03] MEDS: traZODone HCL 50 MG TABLET (FP) PO PRN (21:21)
[2023-01-04] MEDS: PRENATAL VITAMINS W/ FOLIC ACID TABLET (FP) PO SCH (09:38)
[2023-01-04] MEDS: hydrOXYzine PAMOATE 25 MG CAPSULE (FP) PO PRN ×2 (09:39→21:21)
[2023-01-04 10:46] LABS: HEMOGLOBIN 11.7 GM/dL (10.7-15.3); MCH 28.5 pg (25.7-33.7); MCHC 31.7 g/dl (32.0-36.0); MEAN CELL VOLUME 89.8 fl (80-96); MEAN PLT VOLUME 8.6 fl (7.5-11.1); PLATELET COUNT 343 10^3/uL (134-434); RBC 4.12 M/mm3 (3.60-5.2); RDW 13.5 % (11.6-15.6); WHITE BLOOD COUNT 6.1 K/mm3 (4.0-10.0)
[2023-01-04 10:54] LABS: POTASSIUM 4.5 mmol/L (3.5-5.1)
[2023-01-04 11:03] LABS: ALBUMIN 3.2 g/dl (3.4-5.0); BLOOD UREA NITROGEN 14.2 mg/dL (7-18); CREATININE 0.7 mg/dL (0.55-1.3); TOT PROT 6.1 g/dl (6.4-8.2)
[2023-01-04 11:04] LABS: CALCIUM 8.7 mg/dL (8.5-10.1)
[2023-01-04 11:15] LABS: BILIRUBIN,TOTAL 0.3 mg/dL (0.2-1)
[2023-01-04 17:29] LABS: URINE APPEARANCE CLOUDY; URINE BILIRUBIN NEGATIVE (NEGATIVE); URINE COLOR YELLOW; URINE GLUCOSE (UA) NEGATIVE (NEGATIVE); URINE KETONE NEGATIVE (NEGATIVE); URINE LEUK ESTERASE NEGATIVE (NEGATIVE); URINE NITRITE NEGATIVE (NEGATIVE); URINE PROTEIN NEGATIVE (NEGATIVE); URINE UROBILINOGEN 0.2 mg/dL (0.2-1.0)
[2023-01-04] MEDS: THIAMINE HCL 100 MG TABLET (FP) PO SCH (21:20)
[2023-01-04] MEDS: traZODone HCL 50 MG TABLET (FP) PO PRN (21:22)
[2023-01-05] MEDS: PRENATAL VITAMINS W/ FOLIC ACID TABLET (FP) PO SCH (09:49)
[2023-01-05] MEDS: hydrOXYzine PAMOATE 25 MG CAPSULE (FP) PO PRN ×2 (09:49→21:11)
[2023-01-05] MEDS: ACETAMINOPHEN 325 MG TABLET (FP) PO PRN (11:53)
[2023-01-05] MEDS: THIAMINE HCL 100 MG TABLET (FP) PO SCH (21:11)
[2023-01-05] MEDS: traZODone HCL 50 MG TABLET (FP) PO PRN (21:11)
[2023-01-06 07:05] VITALS: TEMP 97.7
[2023-01-06] MEDS: PRENATAL VITAMINS W/ FOLIC ACID TABLET (FP) PO SCH (09:55)
[2023-01-06] MEDS: THIAMINE HCL 100 MG TABLET (FP) PO SCH (21:07)
[2023-01-06] MEDS: hydrOXYzine PAMOATE 25 MG CAPSULE (FP) PO PRN (21:09)
[2023-01-06] MEDS: ACETAMINOPHEN 325 MG TABLET (FP) PO PRN (21:09)
[2023-01-06] MEDS: traZODone HCL 50 MG TABLET (FP) PO PRN (21:09)
[2023-01-07 07:20] VITALS: BP 97/60; PULSE 90
[2023-01-07] MEDS: PRENATAL VITAMINS W/ FOLIC ACID TABLET (FP) PO SCH (09:43)
[2023-01-07] MEDS: hydrOXYzine PAMOATE 25 MG CAPSULE (FP) PO PRN (09:44)
== END 2023-01-07 13:00 | disposition home or self-care (01) | DRG 772 ==
LOC: YASAS 19:32 → Y5N 21:42
PROVIDERS: ADMIT Allergy & Immunology; ATTEND Psychiatry & Neurology Pain Medicine
PROC: HZ42ZZZ Group Counseling for Substance Abuse Treatment, Cognitive-Behavioral (ICD-10-PCS; principal; 2023-01-02)
DX: F16.20 Hallucinogen dependence, uncomplicated (principal); F17.210 Nicotine dependence, cigarettes, uncomplicated; F32.A Depression, unspecified; F19.94 Other psychoactive substance use, unspecified with psychoactive substance-induced mood disorder; F19.982 Other psychoactive substance use, unspecified with psychoactive substance-induced sleep disorder; F19.980 Other psychoactive substance use, unspecified with psychoactive substance-induced anxiety disorder; F41.9 Anxiety disorder, unspecified; D64.9 Anemia, unspecified; R01.1 Cardiac murmur, unspecified; R07.89 Other chest pain; Z28.310 Unvaccinated for COVID-19; Z56.0 Unemployment, unspecified; Z59.01 Sheltered homelessness
CPT/HCPCS: 36415; 80053; 81003; 81025; 85027; 86780; 87635; 93005; 93010

== ENCOUNTER 2023-02-12 10:56 | Inpatient (IN) | payer OTHER ==
[2023-02-12 11:17] VITALS: BMI 24.0
[2023-02-12] MEDS ORDERED: MAG HYDROX/AL HYDROX/SIMETH 30 ML UNIT-DOSE CUP PO PRN (13:15)
[2023-02-12] MEDS ORDERED: POLYETHYLENE GLYCOL (HEALTHYLAX) 3350 17 GM PACKET PO PRN (13:15)
[2023-02-12] MEDS ORDERED: COLLOIDAL OATMEAL 1 BAR EACH TP PRN (13:15)
[2023-02-12] MEDS ORDERED: LOPERAMIDE HCL 2 MG CAPSULE PO PRN (13:15)
[2023-02-12] MEDS ORDERED: BENZONATATE 200 MG CAPSULE PO PRN (13:15)
[2023-02-12] MEDS ORDERED: guaiFENesin 600 MG TABLET.ER (FP) PO PRN (13:15)
[2023-02-12] MEDS ORDERED: MAGNESIUM HYDROX 2400MG/30ML ORAL SUSPENSION 30 ML CUP PO PRN (13:15)
[2023-02-12] MEDS ORDERED: IBUPROFEN 400 MG TABLET (FP) PO PRN (13:15)
[2023-02-12] MEDS ORDERED: ACETAMINOPHEN 325 MG TABLET (FP) PO PRN (13:15)
[2023-02-12] MEDS ORDERED: P-EPHED 60MG/TRIPROLIDI 2.5MG TABLET PO PRN (13:15)
[2023-02-12] MEDS ORDERED: AMMONIUM LACTATE 12% LOTION 225 GM BOTTLE TP PRN (13:15)
[2023-02-12] MEDS ORDERED: BENZOCAINE/MENTHOL (CHLORASEPTIC ) LOZENGE MM PRN (13:15)
[2023-02-12] MEDS ORDERED: IBUPROFEN 600 MG TABLET (FP) PO PRN (13:15)
[2023-02-12 17:58] VITALS: RESP 18
[2023-02-12] MEDS: traZODone HCL 50 MG TABLET (FP) PO SCH (22:36)
[2023-02-12] MEDS: MELATONIN 5 MG TABLETS PO SCH (22:36)
[2023-02-12] MEDS: THIAMINE HCL 100 MG TABLET (FP) PO SCH (22:36)
[2023-02-13 09:45] LABS: POTASSIUM 4.4 mmol/L (3.5-5.1)
[2023-02-13 09:57] LABS: HEMATOCRIT 35.7 % (32.4-45.2); HEMOGLOBIN 11.5 GM/dL (10.7-15.3); MCH 28.6 pg (25.7-33.7); MCHC 32.2 g/dl (32.0-36.0); MEAN CELL VOLUME 88.6 fl (80-96); MEAN PLT VOLUME 8.5 fl (7.5-11.1); PLATELET COUNT 318 10^3/uL (134-434); RBC 4.02 M/mm3 (3.60-5.2); RDW 14.3 % (11.6-15.6); WHITE BLOOD COUNT 7.2 K/mm3 (4.0-10.0)
[2023-02-13 10:00] LABS: ALBUMIN 3.3 g/dl (3.4-5.0)
[2023-02-13 10:02] LABS: BILIRUBIN,TOTAL 0.7 mg/dL (0.2-1); BLOOD UREA NITROGEN 13.5 mg/dL (7-18); CALCIUM 8.2 mg/dL (8.5-10.1); CREATININE 0.7 mg/dL (0.55-1.3)
[2023-02-13] MEDS: PRENATAL VITAMINS W/ FOLIC ACID TABLET (FP) PO SCH (10:02)
[2023-02-13] MEDS: hydrOXYzine PAMOATE 25 MG CAPSULE (FP) PO PRN ×2 (10:02→18:13)
[2023-02-13] MEDS: THIAMINE HCL 100 MG TABLET (FP) PO SCH (21:46)
[2023-02-13] MEDS: MELATONIN 5 MG TABLETS PO SCH (21:46)
[2023-02-13] MEDS: traZODone HCL 50 MG TABLET (FP) PO SCH (21:46)
[2023-02-14] MEDS: PRENATAL VITAMINS W/ FOLIC ACID TABLET (FP) PO SCH ×2 (10:10→10:25)
[2023-02-14] MEDS: traZODone HCL 50 MG TABLET (FP) PO SCH (21:36)
[2023-02-14] MEDS: MELATONIN 5 MG TABLETS PO SCH (21:36)
[2023-02-14] MEDS: THIAMINE HCL 100 MG TABLET (FP) PO SCH (21:36)
[2023-02-14] MEDS: hydrOXYzine PAMOATE 25 MG CAPSULE (FP) PO PRN (21:37)
[2023-02-15 07:25] VITALS: BP 99/63; PULSE 84; TEMP 97.5
[2023-02-15] MEDS: PRENATAL VITAMINS W/ FOLIC ACID TABLET (FP) PO SCH (10:36)
[2023-02-15] MEDS ORDERED: FLUCONAZOLE 50 MG TABLET PO ONE (12:07)
== END 2023-02-15 15:45 | disposition left against medical advice (07) | DRG 770 ==
LOC: YASAS 10:56 → Y5N 16:19
PROVIDERS: ADMIT Allergy & Immunology; ATTEND Psychiatry & Neurology Pain Medicine
PROC: HZ2ZZZZ Detoxification Services for Substance Abuse Treatment (ICD-10-PCS; principal; 2023-02-12)
DX: F16.20 Hallucinogen dependence, uncomplicated (principal); F12.20 Cannabis dependence, uncomplicated; F17.290 Nicotine dependence, other tobacco product, uncomplicated; F19.24 Other psychoactive substance dependence with psychoactive substance-induced mood disorder; F43.10 Post-traumatic stress disorder, unspecified; G47.00 Insomnia, unspecified; Z86.79 Personal history of other diseases of the circulatory system; Z91.410 Personal history of adult physical and sexual abuse; Z28.310 Unvaccinated for COVID-19; Z28.9 Immunization not carried out for unspecified reason; Z59.01 Sheltered homelessness
CPT/HCPCS: 36415; 80053; 81025; 85027; 86780; 87491; 87591; 87635; 87661

== ENCOUNTER 2023-08-11 13:04 | Inpatient (IN) | payer OTHER ==
[2023-08-11 13:52] VITALS: BMI 25.6
[2023-08-11] MEDS ORDERED: BENZOCAINE/MENTHOL (CHLORASEPTIC ) LOZENGE MM PRN (14:37)
[2023-08-11] MEDS ORDERED: POLYETHYLENE GLYCOL (HEALTHYLAX) 3350 17 GM PACKET PO PRN (14:37)
[2023-08-11] MEDS ORDERED: guaiFENesin 600 MG TABLET.ER (FP) PO PRN (14:37)
[2023-08-11] MEDS ORDERED: BENZONATATE 200 MG CAPSULE PO PRN (14:37)
[2023-08-11] MEDS ORDERED: IBUPROFEN 400 MG TABLET (FP) PO PRN (14:37)
[2023-08-11] MEDS ORDERED: IBUPROFEN 600 MG TABLET (FP) PO PRN (14:37)
[2023-08-11] MEDS ORDERED: MAGNESIUM HYDROX 2400MG/30ML ORAL SUSPENSION 30 ML CUP PO PRN (14:37)
[2023-08-11] MEDS ORDERED: LOPERAMIDE HCL 2 MG CAPSULE PO PRN (14:37)
[2023-08-11] MEDS: MELATONIN 5 MG TABLETS PO SCH (22:56)
[2023-08-11] MEDS: THIAMINE HCL 100 MG TABLET (FP) PO SCH (22:57)
[2023-08-12 09:47] VITALS: RESP 18
[2023-08-12 11:50] LABS: HEMATOCRIT 36.1 % (32.4-45.2); HEMOGLOBIN 11.7 GM/dL (10.7-15.3); MCH 28.6 pg (25.7-33.7); MCHC 32.3 g/dl (32.0-36.0); MEAN CELL VOLUME 88.3 fl (80-96); MEAN PLT VOLUME 8.5 fl (7.5-11.1); PLATELET COUNT 345 10^3/uL (134-434); RBC 4.09 M/mm3 (3.60-5.2); RDW 13.5 % (11.6-15.6); WHITE BLOOD COUNT 9.5 K/mm3 (4.0-10.0)
[2023-08-12 11:51] LABS: POTASSIUM 4.6 mmol/L (3.5-5.1)
[2023-08-12 11:51] LABS: URINE APPEARANCE CLEAR; URINE BILIRUBIN NEGATIVE (NEGATIVE); URINE COLOR YELLOW; URINE GLUCOSE (UA) NEGATIVE (NEGATIVE); URINE KETONE NEGATIVE (NEGATIVE); URINE LEUK ESTERASE NEGATIVE (NEGATIVE); URINE NITRITE NEGATIVE (NEGATIVE); URINE PROTEIN NEGATIVE (NEGATIVE)
[2023-08-12 12:00] LABS: BLOOD UREA NITROGEN 16.1 mg/dL (7-18); CALCIUM 8.6 mg/dL (8.5-10.1)
[2023-08-12 12:01] LABS: ALBUMIN 3.4 g/dl (3.4-5.0)
[2023-08-12 12:02] LABS: CREATININE 0.6 mg/dL (0.55-1.3)
[2023-08-12 12:03] LABS: BILIRUBIN,TOTAL 0.5 mg/dL (0.2-1); TOT PROT 6.4 g/dl (6.4-8.2)
[2023-08-12] MEDS: PRENATAL VITAMINS W/ FOLIC ACID TABLET (FP) PO SCH (14:06)
[2023-08-14] MEDS: MAG HYDROX/AL HYDROX/SIMETH 30 ML UNIT-DOSE CUP PO PRN (09:48)
[2023-08-15] MEDS: ACETAMINOPHEN 325 MG TABLET (FP) PO PRN (21:16)
[2023-08-16 07:29] VITALS: BP 107/73; PULSE 90; TEMP 97.8
== END 2023-08-16 12:25 | disposition left against medical advice (07) | DRG 770 ==
LOC: YASAS 13:04 → Y3NR 18:45 → Y5N 08-12 14:02
PROVIDERS: ADMIT Allergy & Immunology; ATTEND Psychiatry & Neurology Pain Medicine
PROC: HZ42ZZZ Group Counseling for Substance Abuse Treatment, Cognitive-Behavioral (ICD-10-PCS; principal; 2023-08-11)
DX: F16.20 Hallucinogen dependence, uncomplicated (principal); F12.20 Cannabis dependence, uncomplicated; M54.50 Low back pain, unspecified; G89.29 Other chronic pain; Z86.2 Personal history of diseases of the blood and blood-forming organs and certain disorders involving the immune mechanism; Z86.79 Personal history of other diseases of the circulatory system; Z28.310 Unvaccinated for COVID-19; Z28.9 Immunization not carried out for unspecified reason; Z59.01 Sheltered homelessness
CPT/HCPCS: 36415; 80053; 80305; 81003; 81025; 85027; 86780; 87635; 87811